=== PATIENT | male | born 1935 | race Caucasian/White ===

== ENCOUNTER 2017-06-19 12:34 | Emergency (ER) | payer OTHER ==
[2017-06-19] MEDS ORDERED: DIPHTH,PERTUSS(ACELL),TET 0.5 ML DISP.SYRIN IM ONE (12:38)
[2017-06-19 12:48] VITALS: BP 167/92; PULSE 82; TEMP 97.6; BMI 30.7
--- NOTE | 2017-06-19 12:50 | PDOC ---
Attending Attestation - Resident Resident Name: Garth Sunshine - ED Attending Attestation I have performed the following: I have examined & evaluated the patient, The case was reviewed & discussed with the resident, I agree w/resident's findings & plan, Exceptions are as noted - HPI HPI: 06/19/17 12:53 Mr. Bridges is an 81 RHD m who presents to the ER s/p injury to the right hand PT was using his lawnmower and the distal fingertips were cut by the blade No other injuries sustained No other complaints Unsure last tetanus shot PMH: HTN, - Physicial Exam PE: 06/19/17 13:08 On examination: Awake and alert RRR CTA Right hand: 2+ RP, UP sensation in tact Intact flexion at MCP, PIP, DIP in digits 3 and 4 Intact extension at MCP, PIP, DIP in digits 3 and 4 Distal finger tips open wounds noted (+) active bleeding No bone seen - Medical Decision Making 06/19/17 13:10 Due to the nature of this injury, no way to re approximate tissues distal tuft amputation Nailbed in tact Digital block by Resident Wound cleaned Tetanus given D/c to home with local wound care Will have to follow up with hand Clinical impression: distal tuft amputation, initial presentation 06/19/17 14:33 Hand follow up on 06/25/2017
--- NOTE | 2017-06-19 13:18 | PDOC ---
History of Present Illness - General Chief Complaint: Injury Stated Complaint: RT 4TH 5T FINGER TIPS CUT Time Seen by Provider: 06/19/17 12:35 - History of Present Illness Initial Comments: 06/19/17 13:17 Mr. Bridges is an 81 yo male who presents for evaluation after injury to 3rd and 4th fingers of right hand whil attempting to clear lawnmower blades earlier today. He is right hand dominant and reports he attempted to lift up the mower when he was injured. He immediately came to the ER for evaluation. The patient denies chest pain, shortness of breath, headache and dizziness. Denies fever, chills, nausea, vomit, diarrhea and constipation. Denies dysuria, frequency, urgency and hematuria. Allergies: NKDA Past History - Past Medical History Allergies/Adverse Reactions: Allergies Allergy/AdvReac Type Severity Reaction Status Date / Time No Known Allergies Allergy Verified 06/19/17 12:35 Home Medications: Ambulatory Orders Cephalexin [Keflex] 500 mg PO BID #14 capsule 06/19/17 COPD: No HTN: Yes Hypercholesterolemia: Yes - Suicide/Smoking/Psychosocial Hx Smoking History: Never smoked Have you smoked in the past 12 months: No Information on smoking cessation initiated: No Hx Alcohol Use: No Drug/Substance Use Hx: No Substance Use Type: None Review of Systems - Review of Systems Comments:: 06/19/17 13:20 GENERAL/CONSTITUTIONAL: No fever or chills. No weakness. HEAD, EYES, EARS, NOSE AND THROAT: No change in vision. No ear pain or discharge. No sore throat. CARDIOVASCULAR: No chest pain or shortness of breath RESPIRATORY: No cough, wheezing, or hemoptysis. GASTROINTESTINAL: No nausea, vomiting, diarrhea or constipation. GENITOURINARY: No dysuria, frequency, or change in urination. MUSCULOSKELETAL: +Pain to 3rd and 4th fingers of right hand at injury site. SKIN: No rash NEUROLOGIC: No headache, vertigo, loss of consciousness, or change in strength/ sensation. ENDOCRINE: No increased thirst. No abnormal weight change HEMATOLOGIC/LYMPHATIC: No anemia, easy bleeding, or history of blood clots. ALLERGIC/IMMUNOLOGIC: No hives or skin allergy. *Physical Exam - Vital Signs Last Vital Signs Temp Pulse Resp BP Pulse Ox 97.6 F 82 20 167/92 98 06/19/17 12:35 06/19/17 12:35 06/19/17 12:35 06/19/17 12:35 06/19/17 12:35 - Physical Exam Comments: 06/19/17 13:20 GENERAL: Awake, alert, and fully oriented, in no acute distress HEAD: No signs of trauma, normocephalic, atraumatic EYES: PERRLA, EOMI, sclera anicteric, conjunctiva clear ENT: Auricles normal inspection, hearing grossly normal, nares patent, oropharynx clear without exudates. Moist mucosa NECK: Normal ROM, supple, no lymphadenopathy, JVD, or masses LUNGS: No distress, speaks full sentences, clear to auscultation bilaterally HEART: Regular rate and rhythm, normal S1 and S2, no murmurs, rubs or gallops, peripheral pulses normal and equal bilaterally. ABDOMEN: Soft, nontender, normoactive bowel sounds. No guarding, no rebound. No masses EXTREMITIES: +Traumatic amputation noted to distal ends of 3rd and 4th digits of right hand, not involving nail / nailbed on either finger. Patient ROM and sensation intact. NEUROLOGICAL: Cranial nerves II through XII grossly intact. Normal speech, normal gait, no focal sensorimotor deficits SKIN: Warm, Dry, normal turgor, no rashes or lesions noted. ED Treatment Course - RADIOLOGY Radiology Studies Ordered: Category Date Time Status FINGER(S) RIGHT [RAD] Stat Radiology 06/19/17 12:35 Ordered Medical Decision Making - Medical Decision Making 06/19/17 13:22 Mr. Bridges is an 81 yo male who presents for evaluation of traumatic fingertip amputation. Patient pain controlled with digital nerve block x2 using 1% lidocaine. Injury sites irrigated with NS and cleaned with betadine solution. Patient sent for XR to ensure no bony involvement. 06/19/17 14:01 Sterile dressing applied to injury and keflex Rx sent to patient's pharmacy for prophylaxis. Patient *DC/Admit/Observation/Transfer Diagnosis at time of Disposition: Laceration - Discharge Dispostion Disposition: HOME - Prescriptions Prescriptions: Cephalexin [Keflex] 500 mg PO BID #14 capsule - Referrals Referrals: Dante Elizalde MD [Staff Physician] - Fran Stallworth MD [Staff Physician] - - Patient Instructions Printed Discharge Instructions: DI for Open Laceration Additional Instructions: Please follow-up with hand specialist next week as discussed. Return to ER if any increase in pain, fever, chills, or any problems with wound healing. - Post Discharge Activity
[2017-06-19] MEDS ORDERED: CEPHALEXIN MONOHYDRATE 500 MG CAPSULE (UD) PO ONE (14:00)
[2017-06-19] MEDS ORDERED: CEPHALEXIN MONOHYDRATE 500 MG CAPSULE (UD) ONE (14:01)
== END 2017-06-19 14:08 | disposition home or self-care (01) ==
LOC: FER 12:34
PROC: 3E0234Z Introduction of Serum, Toxoid and Vaccine into Muscle, Percutaneous Approach (ICD-10-PCS; principal; 2017-06-19)
DX: S61.216A Laceration without foreign body of right little finger without damage to nail, initial encounter (principal); S61.214A Laceration without foreign body of right ring finger without damage to nail, initial encounter; W26.0XXA Contact with knife, initial encounter; Y93.89 Activity, other specified; Y92.89 Other specified places as the place of occurrence of the external cause; I10 Essential (primary) hypertension; E78.00 Pure hypercholesterolemia, unspecified
CPT/HCPCS: 73140-TC-RT-FY; 90471; 90715; 99282-25